=== PATIENT | female | born 1985 | race Caucasian/White ===

== ENCOUNTER 2019-01-24 08:19 | Day surgery (SDC) | payer MEDICAID ==
[~2019-01-24] VITALS: Ht 157.5 cm; Wt 116.4 kg
[2019-01-24] MEDS ORDERED: ZANTAC300 MG PO (08:51)
[2019-01-24] MEDS ORDERED: PROZAC20 MG PO (08:51)
[2019-01-24 08:57] LABS: HEMATOCRIT 37.9 % (36.0-48.0); HEMOGLOBIN 12.9 g/dL (12-16); MCV 82.4 fL (80.0-100.0); MEAN PLATELET VOLUME 10.7 fL (7.4-10.4); RBC 4.6 10x6/uL (4.00-5.40); RDW 13.2 % (11.5-14.5); WBC 8.4 10x3/uL (4.8-10.8)
[2019-01-24 08:58] VITALS: BP 135/85; Ht 157.5 cm; Wt 116.4 kg
--- NOTE | 2019-01-25 17:25 | OP ---
PATIENT NAME: BRAULIO STEINER MEDICAL RECORD: [id number] LOCATION:[facility] ADMISSION DATE: SURGEON: BAM HUANG DO DATE OF OPERATION: 01/24/2019 PROCEDURE: EGD with biopsies. INDICATIONS FOR PROCEDURE: Heartburn, epigastric abdominal pain, nausea and vomiting. SCOPE: Olympus video gastroscope. MEDICATIONS: Propofol 200 mg IV per anesthesia. ESTIMATED BLOOD LOSS: Minimal. COMPLICATIONS: None. FINDINGS AND DESCRIPTION OF PROCEDURE: Informed consent was given. The patient was made comfortable with the above medication. After reaching an adequate level of sedation by slow IV push, the patient was placed in the left side. The endoscope was advanced under direct visualization through the mouth to the third portion of the duodenum. The entire esophagus appeared normal. At the GE junction, there were reflux changes consistent with LA class B reflux-induced esophagitis. Two cold forceps biopsies were taken at the Z-line to rule out the presence of Ken's esophagus. The GE junction had a slightly patulous appearance. The endoscope was advanced through the GE junction into the stomach and retroflexed to view the cardia and fundus, which appeared normal. Throughout the stomach body, antrum, and prepyloric regions, there were patchy areas of erythema and granularity consistent with possible gastritis. Random cold forceps biopsies were taken to submit for histopathology and to rule out the presence of H. pylori. The endoscope was advanced beyond the pylorus into the duodenum, which appeared normal down to the third portion. The endoscope was slowly withdrawn from the patient. The patient tolerated the procedure well and there were no complications. IMPRESSION: 1. LA class B reflux-induced esophagitis. 2. Patulous GE junction, which may be playing a role in the patient's severe reflux and heartburn. 3. Possible gastritis. PLAN AND RECOMMENDATIONS: 1. Discharge home when recovery parameters are met. 2. Follow up biopsy specimen results. 3. GERD diet and reflux precautions. 4. Hold ranitidine and start omeprazole 40 mg capsules daily. 5. Follow up in GI clinic in 3-4 weeks. 6. If the patient is improved with this medication, we will need to try to develop a strategy to reduce her dosing after 8 weeks to a trial of 20 mg capsules daily or potentially switching back to a histamine mariela, which will likely be ineffective as it is now. If she is no better, may consider trying to add Carafate or an H2 mariela in the evening on top of her 40 mg dose in the morning. 7. If we are unable to control her heartburn and reflux with medications, OPERATIVE REPORT [id number] BRAULIO STEINER consider referral to surgery for antireflux procedure. TRANSINT:[id number] Voice Confirmation ID: [id number] DOCUMENT ID: [id number] BAM HUANG DO at 1725 CC: [id number] DICTATION DATE: 01/24/19940 HOST/HOSTESS: 01/24/19 1027 [facility] 01/24/19 [facility] [address] [place] [address]
== END 2019-01-24 10:21 | disposition home or self-care (01) ==
LOC: D.OPS 08:19
PROVIDERS: Anesthesiology; ATTEND Internal Medicine Gastroenterology
DX: K21.0 Gastro-esophageal reflux disease with esophagitis (principal); R12 Heartburn; Z01.812 Encounter for preprocedural laboratory examination